=== PATIENT | male | born 1990 | race Caucasian/White ===

== ENCOUNTER 2020-02-01 23:15 | Emergency (ER) | payer OTHER ==
--- NOTE | 2020-02-01 23:21 | ED Physician Documentation ---
History of Present Illness - Stated complaint Stated Complaint: MALE /COLD/BACK SPASMS - History obtained from History obtained from: Patient (Patient is an otherwise healthy 29-year-old male reports several days of worsening fevers, chills, myalgias now reports he has been noticing some hematuria and is having chills and bilateral lower back pain he reports he is up-to-date on all of his immunizations he denies any recent travel outside the country and denies any recent antibiotic use.) Review of Systems Constitutional: reports: Fever, Chills, Myalgias Eyes: reports: Reviewed and negative Ears: reports: Reviewed and negative Nose: reports: Reviewed and negative Throat: reports: Reviewed and negative Cardiac: reports: Reviewed and negative Respiratory: reports: Reviewed and negative GI: reports: Reviewed and negative : reports: Hematuria Skin: reports: Reviewed and negative Musculoskeletal: reports: Back pain Neurologic: reports: Reviewed and negative Psychiatric: reports: Reviewed and negative Endocrine: reports: Reviewed and negative Immunocompromised: reports: Reviewed and negative PD PAST MEDICAL HISTORY - Present Medications Home Medications: Ambulatory Orders Medication Instructions Recorded Confirmed Cephalexin [Keflex] 500 mg PO QID 10 Days #40 capsule 02/02/20 - Allergies Allergies/Adverse Reactions: Allergies Allergy/AdvReac Type Severity Reaction Status Date / Time No Known Drug Allergies Allergy Verified 02/01/20 23:37 PD ED PE NORMAL - Vitals Vital signs reviewed: Yes - General General: Alert and oriented X 3, No acute distress, Well developed/nourished - HEENT HEENT: PERRL, Moist mucous membranes - Neck Neck: Supple, no meningeal sign, No adenopathy - Cardiac Cardiac: RRR, No murmur, Strong equal pulses - Respiratory Respiratory: No respiratory distress, Clear bilaterally - Abdomen Abdomen: Normal bowel sounds, Soft, Non tender, Non distended, No organomegaly - Back Back: No CVA TTP, No spinal TTP - Derm Derm: Normal color, Warm and dry, No rash - Extremities Extremities: No deformity, No tenderness to palpate, Normal ROM s pain, No edema, No calf tenderness / cord - Neuro Neuro: Alert and oriented X 3, volleyball commentator 2-12 intact, No motor deficit, No sensory deficit, Normal speech - Psych Psych: Normal mood, Normal affect Results - Vitals Vitals: Vital Signs - 24 hr 02/01/20 02/02/20 02/02/20 23:25 01:08 01:30 Temperature 37.9 C H 38.4 C H Heart Rate 99 70 Respiratory 22 18 15 Rate Blood Pressure 128/66 116/60 O2 Saturation 100 95 Oxygen O2 Source Room air - EKG (time done) 23:53 Rate: Other (no stemi) - Labs Labs: Laboratory Tests 02/01/20 02/01/20 02/01/20 23:30 23:50 23:50 WBC 5.8 RBC 4.67 L Hgb 14.4 Hct 42.0 MCV 89.9 MCH 30.8 MCHC 34.3 RDW 12.9 Plt Count 285 MPV 9.0 Neut # (Auto) 4.4 Lymph # (Auto) 1.1 L [place] # (Auto) 0.1 Eos # (Auto) 0.1 Baso # (Auto) 0.1 Absolute Nucleated RBC 0.00 Nucleated RBC % 0.0 PT 13.1 H INR 1.2 APTT 34.7 H Sodium Potassium Chloride Carbon Dioxide Anion Gap BUN Creatinine Estimated GFR (MDRD) Glucose Lactic Acid Calcium Total Bilirubin AST ALT Alkaline Phosphatase Total Creatine Kinase Troponin I High Sens Total Protein Albumin Globulin Albumin/Globulin Ratio Lipase Urine Color YELLOW Urine Clarity CLEAR Urine pH 8.0 H Ur Specific [place] 1.015 Urine Protein NEGATIVE Urine Glucose (UA) NEGATIVE Urine Ketones NEGATIVE Urine Occult Blood MODERATE H Urine Nitrite NEGATIVE Urine Bilirubin NEGATIVE Urine Urobilinogen 0.2 (NORMAL) Ur Leukocyte Esterase LARGE H Urine RBC 6-10 H Urine WBC 11-25 H Ur Squamous Epith Cells NONE SEEN Urine Bacteria Few Ur Microscopic Review INDICATED Urine Culture Comments INDICATED Influenza A (Rapid) Influenza B (Rapid) 02/01/20 02/01/20 02/01/20 23:50 23:50 23:55 WBC RBC Hgb Hct MCV MCH MCHC RDW Plt Count MPV Neut # (Auto) Lymph # (Auto) [place] # (Auto) Eos # (Auto) Baso # (Auto) Absolute Nucleated RBC Nucleated RBC % PT INR APTT Sodium 139 Potassium 3.5 Chloride 102 Carbon Dioxide 27 Anion Gap 10.0 BUN 11 Creatinine 1.0 Estimated GFR (MDRD) 90 Glucose 80 Lactic Acid 1.1 Calcium 9.2 Total Bilirubin 0.8 AST 19 ALT 14 Alkaline Phosphatase 45 Total Creatine Kinase 223 Troponin I High Sens 2.8 Total Protein 7.7 Albumin 4.2 Globulin 3.5 Albumin/Globulin Ratio 1.2 Lipase 40 Urine Color Urine Clarity Urine pH Ur Specific [place] Urine Protein Urine Glucose (UA) Urine Ketones Urine Occult Blood Urine Nitrite Urine Bilirubin Urine Urobilinogen Ur Leukocyte Esterase Urine RBC Urine WBC Ur Squamous Epith Cells Urine Bacteria Ur Microscopic Review Urine Culture Comments Influenza A (Rapid) Influenza B (Rapid) 02/02/20 00:40 WBC RBC Hgb Hct MCV MCH MCHC RDW Plt Count MPV Neut # (Auto) Lymph # (Auto) [place] # (Auto) Eos # (Auto) Baso # (Auto) Absolute Nucleated RBC Nucleated RBC % PT INR APTT Sodium Potassium Chloride Carbon Dioxide Anion Gap BUN Creatinine Estimated GFR (MDRD) Glucose Lactic Acid Calcium Total Bilirubin AST ALT Alkaline Phosphatase Total Creatine Kinase Troponin I High Sens Total Protein Albumin Globulin Albumin/Globulin Ratio Lipase Urine Color Urine Clarity Urine pH Ur Specific [place] Urine Protein Urine Glucose (UA) Urine Ketones Urine Occult Blood Urine Nitrite Urine Bilirubin Urine Urobilinogen Ur Leukocyte Esterase Urine RBC Urine WBC Ur Squamous Epith Cells Urine Bacteria Ur Microscopic Review Urine Culture Comments Influenza A (Rapid) Negative Influenza B (Rapid) Negative PD MEDICAL DECISION MAKING - ED course Complexity details: reviewed results, re-evaluated patient, considered differential (uti, pyelo, viral syndrome, flu, covid, kidney stones), d/w patient, d/w family Departure - Departure Disposition: Home, Self Care Clinical Impression: UTI (urinary tract infection) Qualifiers: Urinary tract infection type: site unspecified Hematuria presence: with hematuria Qualified Code(s): N39.0 - Urinary tract infection, site not specified; R31.9 - Hematuria, unspecified Condition: Stable Instructions: ED UTI Cystitis Male Follow-Up: YOUR, DOCTOR [Other] - 02/02/20 [facility] [Provider Group] - 02/02/20 Prescriptions: Cephalexin [Keflex] 500 mg PO QID 10 Days #40 capsule Comments: Take antibiotics as directed. Take either Tylenol or ibuprofen as needed for fever. Hydrate well.Call your primary care provider today for follow-up.
[2020-02-01] MEDS ORDERED: SODIUM CHLORIDE 0.9% 1,000 ML IV STA (23:49)
[2020-02-01] MEDS ORDERED: cefTRIAXone 1 GM in SODIUM CHLORIDE 0.9% MINIBAG 100 ML IV STA (23:49)
[2020-02-01] MEDS ORDERED: IBUPROFEN 800 MG TABLET PO STA (23:49)
[2020-02-01 23:50] LABS: BILIRUBIN,URINE NEGATIVE (NEGATIVE); GLUCOSE, URINE (UA) NEGATIVE (NEGATIVE); KETONES,URINE (UA) NEGATIVE (NEGATIVE); LEUKOCYTE ESTERASE, URINE LARGE (NEGATIVE); NITRITE,URINE NEGATIVE (NEGATIVE); OCCULT BLOOD,URINE MODERATE (NEGATIVE); PROTEIN,URINE NEGATIVE (NEGATIVE); UROBILINOGEN,URINE 0.2 (NORMAL) E.U./dL (NORMAL)
[2020-02-01] MEDS ORDERED: ACETAMINOPHEN 1,000 MG/100 ML 100 ML IV ONE (23:50)
[2020-02-01] MEDS ORDERED: ONDANSETRON 4 MG/2 ML VIAL IVP STA (23:50)
[2020-02-01 23:51] LABS: CLARITY,URINE CLEAR (CLEAR)
[2020-02-01 23:59] LABS: BACTERIA,URINE Few /HPF (None Seen); SQUAMOUS EPITHELIAL CELL,UR NONE SEEN (<= Few)
[2020-02-01] MEDS: MORPHINE 2 MG/ML CARPUJECT IVP STA (23:59)
[2020-02-02] MEDS: MORPHINE 2 MG/ML CARPUJECT IVP STA (00:02)
[2020-02-02 00:14] LABS: BASOPHILS # (AUTO) 0.1 10^3/uL (0.0-0.1); EOSINOPHILS # (AUTO) 0.1 10^3/uL (0.0-0.7); EOSINOPHILS % (AUTO) 2.4 %; HGB - HEMOGLOBIN 14.4 g/dL (14.0-18.0); LYMPHOCYTES # (AUTO) 1.1 10^3/uL (1.5-3.5); LYMPHOCYTES % (AUTO) 18.3 %; MEAN CORPUSCULAR HEMOGLOBIN 30.8 pg (27.0-31.0); MEAN CORPUSCULAR HGB CONC 34.3 g/dL (32.0-36.0); MEAN CORPUSCULAR VOLUME 89.9 fL (80.0-94.0); MONOCYTES # (AUTO) 0.1 10^3/uL (0.0-1.0); MONOCYTES % (AUTO) 0.9 %; NEUTROPHILS # (AUTO) 4.4 10^3/uL (1.5-6.6); NEUTROPHILS % (AUTO) 77.2 %; PLT - PLATELET COUNT 285 10^3/uL (130-450); RED BLOOD COUNT 4.67 10^6/uL (4.70-6.10); RED CELL DISTRIBUTION WIDTH 12.9 % (12.0-15.0); WHITE BLOOD COUNT 5.8 x10^3/uL (4.8-10.8)
[2020-02-02] MEDS ORDERED: MORPHINE 2 MG/ML CARPUJECT ONE (00:14)
[2020-02-02 00:17] LABS: INR 1.2 (0.8-1.2); PT - PROTHROMBIN TIME 13.1 secs (9.9-12.6)
[2020-02-02 00:24] LABS: PARTIAL THROMBOPLASTIN TIME 34.7 secs (24.9-33.3)
[2020-02-02 00:25] LABS: ALBUMIN 4.2 g/dL (3.2-5.5); ALBUMIN/GLOBULIN RATIO 1.2 (1.0-2.2); BILIRUBIN,TOTAL 0.8 mg/dL (0.2-1.0); CALCIUM 9.2 mg/dL (8.5-10.3); TOTAL PROTEIN 7.7 g/dL (6.7-8.2)
[2020-02-02] MEDS ORDERED: MORPHINE 2 MG/ML CARPUJECT IVP STA (00:38)
[2020-02-02 02:11] VITALS: BP 105/55
--- NOTE | 2020-02-02 08:01 | CT Report ---
Reason: flank pain and hematuria Procedure Date: 02/02/2020 Accession Number: [id number] / [id number] Procedure: CT - Abdomen/Pelvis WO CPT Code: Final Report FULL RESULT: PROCEDURE: Abdomen/Pelvis WO INDICATIONS: flank pain and hematuria TECHNIQUE: Non-contrast 3 mm thick sections acquired from the diaphragm to the symphysis. 3 mm thick coronal and sagittal reformats were performed. COMPARISON: None FINDINGS: Image quality: Excellent Lung bases: Lung bases are clear. Heart size is normal. Genitourinary system: Both kidneys are normal in size. No kidney stones. No hydronephrosis or perinephric fat stranding. Both ureters are non-distended through their expected courses. Bladder wall is normal in thickness; no bladder stones. Abdomen: Liver and spleen are normal in size. Gall bladder wall is normal. Pancreas is normal in size. No adrenal nodules. Unopacified bowel loops demonstrate normal caliber and wall thickness. Large amount of fecal debris in the cecum and ascending colon No retroperitoneal or mesenteric adenopathy. Aorta and inferior vena cava are normal in size. No free fluid or air. Pelvis: No pathologic free pelvic fluid. No inguinal hernias or adenopathy. Bones: No suspicious bony abnormalities. No vertebral body compression fractures. IMPRESSION: 1. No evidence of renal stone, ureteral stone, or hydronephrosis. 2. Large amount of right-sided fecal debris. 3. No evidence acute abdominal process. A preliminary report with the above findings was provided at the time of the study by [facility]. Reviewed by: Yogesh Craig MD on 02/02/2020 8:00 AM PDT Approved by: Yogesh Craig MD on 02/02/2020 8:00 AM PDT Station ID: [id number]
--- NOTE | 2020-02-02 08:18 | XRAY Report ---
Reason: fever Procedure Date: 02/02/2020 Accession Number: [id number] / [id number] Procedure: XR - Chest 1 View X-Ray CPT Code: 68051 Final Report FULL RESULT: PROCEDURE: Chest 1 View X-Ray INDICATIONS: fever TECHNIQUE: One view of the chest was acquired. COMPARISON: None FINDINGS: Surgical changes and devices: None. Lungs and pleura: No pleural effusions or pneumothorax. Lungs are clear. Mediastinum: Mediastinal contours appear normal. Heart size is normal. Bones and chest wall: No suspicious bony lesions. Overlying soft tissues appear unremarkable. IMPRESSION: No evidence acute pulmonary process. Reviewed by: Yogesh Craig MD on 02/02/2020 8:16 AM PDT Approved by: Yogesh Craig MD on 02/02/2020 8:16 AM PDT Station ID: [id number]
== END 2020-02-02 02:10 | disposition home or self-care (01) ==
LOC: ED 23:15
DX: N39.0 Urinary tract infection, site not specified (principal); R31.9 Hematuria, unspecified; I51.7 Cardiomegaly; Z11.59 Encounter for screening for other viral diseases
CPT/HCPCS: 36415; 71045; 74176; 80053; 81001; 81003; 81599; 82550; 83605; 83690; 84484; 85025; 85610; 85730; 87040; 87077; 87086; 87181; 87275; 87276; 93005; 96365; 96375; 99283

== ENCOUNTER 2020-02-02 13:18 | Inpatient (IN) | payer OTHER ==
--- NOTE | 2020-02-02 13:44 | ED Physician Documentation ---
History of Present Illness - Stated complaint Stated Complaint: POSITIVE BLOOD CULTURE - History obtained from History obtained from: Patient, Other (chart) - History of Present Illness Timing: Yesterday Review of Systems Constitutional: reports: Chills, Myalgias, Fatigue Cardiac: denies: Chest pain / pressure, Palpitations Respiratory: denies: Dyspnea, Cough GI: denies: Abdominal Pain : reports: Dysuria, Hematuria Skin: denies: Rash, Lesions Musculoskeletal: denies: Back pain Neurologic: denies: Generalized weakness, Focal weakness, Syncope, Seizure, Confused, Altered mental status Endocrine: denies: Polydypsia, Polyuria Immunocompromised: denies: Immunocompromised, HIV/AIDS PD PAST MEDICAL HISTORY - Past Medical History Cardiovascular: None Respiratory: None Neuro: None Endocrine/Autoimmune: None GI: None : None HEENT: None Psych: None Musculoskeletal: None Derm: None - Past Surgical History Past Surgical History: Yes HEENT: Tonsil/Adenoidectomy - Present Medications Home Medications: Ambulatory Orders Medication Instructions Recorded Confirmed Cephalexin [Keflex] 500 mg PO QID 10 Days #40 capsule 02/02/20 - Allergies Allergies/Adverse Reactions: Allergies Allergy/AdvReac Type Severity Reaction Status Date / Time No Known Drug Allergies Allergy Verified 02/02/20 13:32 - Social History Does the pt smoke?: Yes Smoking Status: Current every day smoker Does the pt drink ETOH?: Yes Does the pt have substance abuse?: No - Immunizations Immunizations are current?: Yes PD ED PE NORMAL - General General: Alert and oriented X 3, No acute distress - HEENT HEENT: PERRL, EOMI - Neck Neck: Supple, no meningeal sign - Cardiac Cardiac: RRR, No murmur, Strong equal pulses, Other (mild tachycardia 110) - Respiratory Respiratory: No respiratory distress, Clear bilaterally - Abdomen Abdomen: Normal bowel sounds, Soft - Back Back: No CVA TTP, No spinal TTP - Derm Derm: Normal color, Warm and dry, No rash - Extremities Extremities: No deformity, No tenderness to palpate, Normal ROM s pain - Neuro Neuro: Alert and oriented X 3, director of investigations 2-12 intact, No motor deficit, Normal speech Results - Vitals Vitals: Vital Signs - 24 hr 02/02/20 02/02/20 13:21 13:32 Temperature 37.6 C H 37.6 C H Heart Rate 110 H 110 H Respiratory 18 18 Rate Blood Pressure 116/63 116/63 O2 Saturation 97 Oxygen O2 Source Room air - Labs Labs: Laboratory Tests 02/02/20 02/02/20 02/02/20 13:45 13:45 13:45 WBC 12.4 H RBC 4.40 L Hgb 13.6 L Hct 39.3 L MCV 89.3 MCH 30.9 MCHC 34.6 RDW 12.9 Plt Count 244 MPV 8.7 Neut # (Auto) 10.7 H Lymph # (Auto) 0.6 L [place] # (Auto) 0.8 Eos # (Auto) 0.1 Baso # (Auto) 0.1 Absolute Nucleated RBC 0.00 Nucleated RBC % 0.0 Sodium 135 Potassium 3.6 Chloride 103 Carbon Dioxide 23 Anion Gap 9.0 BUN 15 Creatinine 1.0 Estimated GFR (MDRD) 90 Glucose 115 H Lactic Acid 1.0 Calcium 8.7 Total Bilirubin 1.1 H AST 19 ALT 12 Alkaline Phosphatase 38 L Total Protein 7.0 Albumin 3.6 Globulin 3.4 Albumin/Globulin Ratio 1.1 PD MEDICAL DECISION MAKING - ED course Complexity details: reviewed results, re-evaluated patient, considered differential, d/w patient ED course: 29year old male returns to the ED after blood cx obtained yesterday evening resulted + for gram negative bacteria. A urine cx has resulted positive for e- coli - pt will be admitted to [facility] hospitalist staff. I have spoken with Dr. alvarez who has agreed to see and admit patient - Repeat blood cx pending. Pt's lactate is normal. He has no fever here and no tachycardia. meets Sepsis criteria without shock. Inital lactate today is not elevated. Will be repeat by hospitalist staff. I have ordered 1 liter of IVF Departure - Departure Disposition: [facility] DC/Xfer Clinical Impression: Bacteremia due to Gram-negative bacteria
[2020-02-02 13:54] LABS: BASOPHILS # (AUTO) 0.1 10^3/uL (0.0-0.1); BASOPHILS % (AUTO) 0.7 %; EOSINOPHILS # (AUTO) 0.1 10^3/uL (0.0-0.7); EOSINOPHILS % (AUTO) 0.7 %; HGB - HEMOGLOBIN 13.6 g/dL (14.0-18.0); LYMPHOCYTES # (AUTO) 0.6 10^3/uL (1.5-3.5); MEAN CORPUSCULAR HEMOGLOBIN 30.9 pg (27.0-31.0); MEAN CORPUSCULAR HGB CONC 34.6 g/dL (32.0-36.0); MEAN CORPUSCULAR VOLUME 89.3 fL (80.0-94.0); MEAN PLATELET VOLUME 8.7 fL (7.4-11.4); MONOCYTES # (AUTO) 0.8 10^3/uL (0.0-1.0); MONOCYTES % (AUTO) 6.8 %; NEUTROPHILS # (AUTO) 10.7 10^3/uL (1.5-6.6); NEUTROPHILS % (AUTO) 86.3 %; PLT - PLATELET COUNT 244 10^3/uL (130-450); RED CELL DISTRIBUTION WIDTH 12.9 % (12.0-15.0); WHITE BLOOD COUNT 12.4 x10^3/uL (4.8-10.8)
[2020-02-02 14:09] LABS: ALBUMIN 3.6 g/dL (3.2-5.5); ALBUMIN/GLOBULIN RATIO 1.1 (1.0-2.2); BILIRUBIN,TOTAL 1.1 mg/dL (0.2-1.0); CALCIUM 8.7 mg/dL (8.5-10.3)
[2020-02-02] MEDS ORDERED: cefTRIAXone 2 GM in SODIUM CHLORIDE 0.9% MINIBAG 100 ML IV STA (14:30)
[2020-02-02] MEDS ORDERED: SODIUM CHLORIDE 0.9% 1,000 ML IV STA (14:47)
[2020-02-02] MEDS ORDERED: ONDANSETRON 4 MG/2 ML VIAL IVP PRN (15:03)
[2020-02-02] MEDS ORDERED: SODIUM CHLORIDE FLUSH 0.9% 10 ML SYRINGE IVP PRN (15:03)
--- NOTE | 2020-02-02 15:16 | HISTORY & PHYSICAL EXAMINATION ---
Chief Complaint - Chief Complaint Chief Complaint: fever, bacteremia History of Present Illness - Admitted From Admitted From:: ER - History Obtained From History obtained from: pt - History of Present Illness HPI Comment/Other: This is an otherwise healthy 29-year-old male who present ER complain of fever, and positive bacteremia. Patient came to the ER on yesterday. He was reported to have UTI. patient was prescribed antibiotics and discharged to go home. patient had blood culture On yesterday. It was reported he had bacterial uremia with negative bacilli in his the 2 tubal blood culture. patient was recalled and advised patient come back to the hospital for continuing medical management. He reported several days of worsening fevers, chills, myalgias. He reported he has been noticing some hematuria, and had bilateral lower back pain. he denies any recent travel outside the country. Patient had covid 19 test on yesterday, the test result is still not to come back yet. In routine lab test show patient had elevated WBC, lactic acid is normal, the ER patient had temperature 37.6, slightly tachycardia at heart rate 110. Patient denies chest pain, shortness of breathing, abdominal pain, nausea or vomiting or diarrhea. Patient is admitted for further medical management. History - Past Medical History Cardiovascular: reports: None Respiratory: reports: None Neuro: reports: None Endocrine/Autoimmune: reports: None GI: reports: None : reports: None HEENT: reports: None Psych: reports: None Musculoskeletal: reports: None Derm: reports: None MRSA Hx?: No - Past Surgical History HEENT: reports: Tonsil/Adenoidectomy - Family & Social History Family History: Mother: Alive and Well, Father: Alive and Well Family History Comment/Other: pt report her parents are still living at [place]. his father has prostate cancer in the control, and her mother had breast cancer in the control as well. Social History Notes: pt report he smoked 6-7 cigarette per day. he denies alcohol and drug abuse. 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 he had two children. Meds/Allgy - Home Medications Home Medications: Ambulatory Orders Medication Instructions Recorded Confirmed No Known Home Medications 02/02/20 02/02/20 - Allergies Allergies/Adverse Reactions: Allergies Allergy/AdvReac Type Severity Reaction Status Date / Time No Known Drug Allergies Allergy Verified 02/02/20 13:32 Review of Systems - Constitutional Constitutional: reports: Fatigue, Fever. denies: Malaise, Weakness, Poor appetite, Diaphoresis, Night sweats - Eyes Eyes: denies: Pain, Blurred vision, Spots in vision, Field loss, Vision loss, Dipolpia - Ears, Nose & Throat Ears, Nose & Throat: denies: Ear pain, Hearing loss, Vertigo, Nasal discharge, Nosebleeds, Nasal congestion, Mouth lesions, Bleeding gums - Cardiovascular Cariovascular: denies: Irregular heart rate, Palpitations, Chest pain, Edema, Lightheadedness, Syncope, Exertional dyspnea, Decr. exercise tolerance - Respiratory Respiratory: denies: Cough, Sputum production, Wheezing, Snoring, Hemoptysis, Orthopnea, SOB at rest, SOB with exertion - Gastrointestinal Gastrointestinal: denies: Abdominal pain, Abdominal distention, Constipation, Diarrhea, Change in bowel habits, Rectal bleeding, Black stools, Bloody stools, Nausea, Vomiting, Bile emesis, Coffee grounds emesis, Reflux/heartburn - Genitourinary Genitourinary: denies: Dysuria, Frequency, Urgency, Hematuria, Incontinence, Flank pain, Nocturia - Musculoskeletal Musculoskeletal: reports: Back pain. denies: Muscle pain, Muscle aches, Stiffness, Limited range of motion, Muscle weakness, Gout, Joint pain - Integumentary Integumentary: denies: Rash, Pruritis, Lesions, Dryness, Lumps, Acne, Pigment changes, Nail changes - Neurological Neurological: denies: General weakness, Focal weakness, Headache, Dizziness, Numbness, Memory problems, Pre-existing deficit, Abnormal gait, Seizures, I ncoordination, Slurred speech - Psychiatric Psychiatric: denies: Depression, Anxiety, Suicidal, Delusions, Hallucinations, Homicidal - Endocrine Endocrine: denies: Polyuria, Polydypsia, Polyphagia - Hematologic/Lymphatic Hematologic/Lymphatic: denies: Anemia, Bruising, Petechiae, Blood clots, Lymphadenopathy, Bleeding tendencies Exam - Vital Signs Vital Signs: Vital Signs x48h Temp Pulse Resp BP Pulse Ox 02/02/20 13:32 37.6 C H 110 H 18 116/63 02/02/20 13:21 37.6 C H 110 H 18 97 - Physical Exam General Appearance: positive: No acute distress, Alert. negative: Lethargic Eyes Bilateral: positive: Normal inspection, PERRL, No lid inflammation ENT: positive: ENT inspection nml, No signs of dehydration. negative: Purulent nasal drainage Neck: positive: Nml inspection, Thyroid nml, Trachea midline. negative: Thyromegaly, Stiff neck, Tracheal deviation Respiratory: positive: Chest non-tender, No respiratory distress, Breath sounds nml. negative: Wheezes, Rales, Rhonchi Cardiovascular: positive: Regular rate & rhythm, No murmur, No gallop, Tachycardia. negative: Irregularly irregular, Bradycardia, Systolic murmur, Diastolic murmur Peripheral Pulses: positive: 2+ Abdomen: positive: Non-tender, No organomegaly, Nml bowel sounds, No distention. negative: Tenderness, Guarding, Rebound Back: positive: Nml inspection. negative: CVA tenderness (R), CVA tenderness (L) Skin: positive: Color nml, No rash, Warm, Dry. negative: Cyanosis, Diaphoresis, Pallor Extremities: positive: Non-tender, Full ROM, Nml appearance. negative: Calf tenderness, Giselle's sign/cords Neurologic/Psychiatric: positive: Oriented x3, Motor nml, Sensation nml. negative: Weakness, Sensory loss, Facial droop, Slurred/abnml speech, Depressed mood/affect Sepsis Event Note (H) - Evaluation Current Stage of Sepsis: Sepsis Possible source of Sepsis: positive: Genitourinary - Sepsis Criteria Sepsis Criteria: Recorded Temperature greater than 38.3C or Less than 36C, Recorded Heart Rate greater than 90 bpm, WBC count greater than 10% bands, WBC count greater than 12,000 or less than 4000 Conclusion/Plan - Problem List (1) Sepsis Conclusion/Plan: Patient had a fever and chill, patient had elevated WBC, blood culture show 2 tube with bacteremia, UA show positive for the UTI, patient had sepsis and likely from urinary tract infection. patient was given intravenous antibiotics Rocephin in the ER, will continue to give patient Rocephin, intravenous IV fluids, monitor with vital signs and lab test, Follow-up second blood culture which was done in the ER, patient had a COVID-19 test on yesterday, results still pending. (2) Bacteremia due to Gram-negative bacteria Conclusion/Plan: Patient had bacteremia in the blood culture on 2 tubal which show patient had gram-negative bacilli, is likely from the urinary tract infection E. coli, will continue treated antibiotics Rocephin, intravenous IV flu, continue closely monitor patient with vital signs and laboratory test (3) Fever Conclusion/Plan: Patient had a fever on yesterday 38.3, today continue had elevated temperature at 37.6, patient had a COVID-19 testing in the ER done on the yesterday, results is still pending, will treat with antibiotics Rocephin, as needed with Tylenol for fever. (4) UTI (urinary tract infection) Conclusion/Plan: Urinalysis reveals patient has a UTI, we will continue treated with Rocephin, and sensitivity study is still pending, will follow up - Lab Results Fish Bones: 02/02/20 13:45 02/02/20 13:45 Core Measures - Anticipated LOS I expect patient to be DC'd or transferred within 96 hours.: Yes - DVT/VTE - Prophylaxis VTE/DVT Device ordered at admit?: Yes VTE/DVT Prophylaxis med ordered at admit?: Yes
[2020-02-02] MEDS ORDERED: HYDROmorphone 1 MG/ML CARPUJECT IVP STA (15:19)
--- NOTE | 2020-02-02 16:05 | PHARMACY PROGRESS NOTE ---
- Best Possible Medication History Admit Date and Time: 02/02/20 1503 Processed by: Pharmacy Medication History completed: Yes Patient Interview: Completed As the person ultimately responsible for medication therapy, providers are able to order a medication from an existing home medication list in [facility] via the "Reconcile Routine" prior to Confirmation of that medication by bioinformatics support specialist. Such practice is discouraged except when the physician, in their clinical valdemar gment, deems that a medical need exists for a medication without regard to previous use.
[2020-02-02] MEDS ORDERED: MORPHINE 2 MG/ML CARPUJECT IVP PRN (16:51)
[2020-02-02] MEDS ORDERED: SODIUM CHLORIDE 0.9% 500 ML IV ONE ×2 (16:52→18:30)
[2020-02-02] MEDS: NICOTINE 14 MG PATCH TOP SCH (16:59)
[2020-02-02] MEDS: SACCHAROMYCES BOULARDII 250 MG CAPSULE PO SCH (16:59)
[2020-02-02] MEDS: ACETAMINOPHEN 325 MG TABLET PO PRN (16:59)
[2020-02-02] MEDS: SODIUM CHLORIDE 0.9% 1,000 ML IV SCH (16:59)
[2020-02-02] MEDS: SODIUM CHLORIDE FLUSH 0.9% 10 ML SYRINGE IVP SCH (17:00)
[2020-02-02 20:16] LABS: BILIRUBIN,URINE NEGATIVE (NEGATIVE); GLUCOSE, URINE (UA) NEGATIVE (NEGATIVE); KETONES,URINE (UA) 15 mg/dL (NEGATIVE); LEUKOCYTE ESTERASE, URINE NEGATIVE (NEGATIVE); NITRITE,URINE NEGATIVE (NEGATIVE); OCCULT BLOOD,URINE NEGATIVE (NEGATIVE); PROTEIN,URINE NEGATIVE (NEGATIVE); UROBILINOGEN,URINE 0.2 (NORMAL) E.U./dL (NORMAL)
[2020-02-02 20:18] LABS: CLARITY,URINE CLEAR (CLEAR)
[2020-02-02 20:35] LABS: BACTERIA,URINE None Seen /HPF (None Seen); RBC,URINE 0-5 /HPF (0-5); SQUAMOUS EPITHELIAL CELL,UR NONE SEEN (<= Few)
[2020-02-02] MEDS: oxyCODONE 5 MG TABLET PO PRN (21:27)
--- NOTE | 2020-02-02 23:17 | PROVIDER PROGRESS NOTE ---
[employer] Shift Superintendent Note - [employer] Shift Superintendent Note [employer] Shift Superintendent Note: On further inquiry as to patient's presentation he denied any history of kidney stones. He denied any recent trauma. He is sexually active with one other female aside from his . He is currently going through a divorce and has not been sexually active with his for the past 6 months. He affirmed to unprotected vaginal and anal intercourse with this individual. He denied any urethral discharge. Except recently with blood in his urine he also denied any pain upon urination. He denies any previous history of UTIs. He denied any history of STDs. He has been tested for gonorrhea, chlamydia, trichomonas and syphilis.
[2020-02-03] MEDS: ACETAMINOPHEN 325 MG TABLET PO PRN ×3 (00:32→23:55)
[2020-02-03] MEDS: SODIUM CHLORIDE FLUSH 0.9% 10 ML SYRINGE IVP SCH ×4 (00:34→23:53)
[2020-02-03] MEDS: oxyCODONE 5 MG TABLET PO PRN ×2 (02:40→09:05)
[2020-02-03] MEDS: SODIUM CHLORIDE 0.9% 1,000 ML IV SCH ×3 (02:40→23:53)
[2020-02-03 05:36] LABS: BASOPHILS # (AUTO) 0.1 10^3/uL (0.0-0.1); BASOPHILS % (AUTO) 0.8 %; EOSINOPHILS # (AUTO) 0.1 10^3/uL (0.0-0.7); EOSINOPHILS % (AUTO) 1.3 %; HGB - HEMOGLOBIN 12.6 g/dL (14.0-18.0); LYMPHOCYTES # (AUTO) 1.5 10^3/uL (1.5-3.5); LYMPHOCYTES % (AUTO) 19.6 %; MEAN CORPUSCULAR HEMOGLOBIN 30.2 pg (27.0-31.0); MEAN CORPUSCULAR HGB CONC 33.5 g/dL (32.0-36.0); MEAN CORPUSCULAR VOLUME 90.2 fL (80.0-94.0); MEAN PLATELET VOLUME 8.9 fL (7.4-11.4); MONOCYTES # (AUTO) 0.9 10^3/uL (0.0-1.0); MONOCYTES % (AUTO) 12.1 %; NEUTROPHILS % (AUTO) 65.8 %; PLT - PLATELET COUNT 200 10^3/uL (130-450); RED BLOOD COUNT 4.17 10^6/uL (4.70-6.10); RED CELL DISTRIBUTION WIDTH 12.9 % (12.0-15.0); WHITE BLOOD COUNT 7.7 x10^3/uL (4.8-10.8)
[2020-02-03 05:44] LABS: CALCIUM 7.9 mg/dL (8.5-10.3)
[2020-02-03] MEDS: PANTOPRAZOLE 40 MG TABLET PO SCH (06:29)
[2020-02-03] MEDS ORDERED: POTASSIUM CHLORIDE 20 MEQ TABLET PO ONE (08:00)
[2020-02-03] MEDS: SACCHAROMYCES BOULARDII 250 MG CAPSULE PO SCH ×2 (09:03→17:17)
[2020-02-03] MEDS: cefTRIAXone 2 GM in SODIUM CHLORIDE 0.9% MINIBAG 100 ML IV SCH (09:04)
[2020-02-03] MEDS: NICOTINE 14 MG PATCH TOP SCH (09:14)
[2020-02-03] MEDS: ENOXAPARIN 40 MG/0.4 ML SYRINGE SUBQ SCH (09:15)
--- NOTE | 2020-02-03 10:03 | PROVIDER PROGRESS NOTE ---
Subjective - Prog Note Date Prog Note Date: 02/03/20 - Subjective Pt reports feeling: Improved Subjective: pt report he felt better. he report he had a spot fever on last night but no fever at this morning. he denies cough, shortness of breath, chest pain. he did report to night provider he had non-protected intercourse on vaginal and anus with a female out of his marriage. he reported he has been on divorce process with his . pt declined to talk the above when he was in the admission. Current Medications - Current Medications Current Medications: Active Medications Acetaminophen (Tylenol) 650 mg PO Q4HR PRN PRN Reason: Pain 1 to 4 Last Admin: 02/03/20 00:32 Dose: 650 mg Enoxaparin Sodium (Lovenox) 40 mg SUBQ DAILY [facility] Last Admin: 02/03/20 09:15 Dose: 40 mg Sodium Chloride (Normal Saline 0.9%) 1,000 mls @ 100 mls/hr IV .Q10H [facility] Last Admin: 02/03/20 02:40 Dose: 100 mls/hr Ceftriaxone Sodium 2 gm/ (Sodium Chloride) 100 mls @ 200 mls/hr IV DAILY [facility] Last Infusion: 02/03/20 09:43 Dose: Infused Morphine Sulfate (Morphine (Carpuject)) 2 mg IVP Q2HR PRN PRN Reason: PAIN >5-10 Nicotine (Nicoderm) 1 patch TOP DAILY [facility] Last Admin: 02/03/20 09:14 Dose: 1 patch Ondansetron HCl (Zofran Inj) 4 mg IVP Q6HR PRN PRN Reason: Nausea / Vomiting Oxycodone HCl (Roxicodone) 5 mg PO Q4HR PRN PRN Reason: PAIN 1-5 Last Admin: 02/03/20 09:05 Dose: 5 mg Pantoprazole Sodium (Protonix) 40 mg PO QDAC [facility] Last Admin: 02/03/20 06:29 Dose: 40 mg Saccharomyces Boulardii (Florastor) 250 mg PO BIDWM [facility] Last Admin: 02/03/20 09:03 Dose: 250 mg Sodium Chloride (Normal Saline Flush 0.9%) 10 ml IVP PRN PRN PRN Reason: NEEDED PER PROVIDER ORDERS Sodium Chloride (Normal Saline Flush 0.9%) 10 ml IVP 0100,0900,1700 [facility] Last Admin: 02/03/20 09:10 Dose: 10 ml No Known Home Medications 02/02/20 Objective - Vital Signs/Intake & Output Vital Signs: Vital Signs x48h Temp Pulse Resp BP Pulse Ox 02/03/20 07:46 37.1 C 63 18 110/60 97 02/03/20 02:40 37.3 C 63 16 107/55 L 97 Intake & Output: Intake & Output 01/31/20 02/01/20 02/02/20 02/03/20 23:59 23:59 23:59 23:59 Intake Total 2486 1068.333 Output Total 1350 750 Balance 1136 318.333 - Objective General Appearance: positive: No acute distress, Alert. negative: Lethargic Eyes Bilateral: positive: Normal inspection, PERRL, No lid inflammation ENT: positive: ENT inspection nml, Pharynx nml, No signs of dehydration. negative: Purulent nasal drainage, Pharyngeal erythema, Oral lesions Neck: positive: Nml inspection, Thyroid nml, Trachea midline. negative: Thyromegaly, Lymphadenopathy (R), Lymphadenopathy (L), Stiff neck, Tracheal deviation Respiratory: positive: Chest non-tender, No respiratory distress, Breath sounds nml. negative: Wheezes, Rales, Rhonchi Cardiovascular: positive: Regular rate & rhythm, No murmur, No gallop. negative: Irregularly irregular, Tachycardia, Bradycardia, JVD present, Systolic murmur, Diastolic murmur Peripheral Pulses: 2+ Radial (R), 2+ Radial (L), 2+ Dorsalis pedis (R), 2+ Dorsalis pedis (L) Abdomen: positive: Non-tender, No organomegaly, Nml bowel sounds, No distention. negative: Tenderness, Guarding, Rebound Back: positive: Nml inspection. negative: CVA tenderness (R), CVA tenderness (L) Skin: positive: Color nml, No rash, Warm, Dry. negative: Cyanosis, Diaphoresis, Pallor Extremities: positive: Non-tender, Full ROM, Nml appearance. negative: Calf tenderness, Giselle's sign/cords Neurologic/Psychiatric: positive: Oriented x3, Motor nml, Sensation nml, Mood/af fect nml. negative: Weakness, Sensory loss, Facial droop, Slurred/abnml speech, Depressed mood/affect - Lab Results Fish Bones: 02/03/20 05:26 02/03/20 05:26 Other Labs: Lab Results x24hrs 02/03/20 02/03/20 02/02/20 Range/Units 05:26 05:26 19:30 WBC 7.7 (4.8-10.8) x10^3/uL RBC 4.17 L (4.70-6.10) 10^6/uL Hgb 12.6 L (14.0-18.0) g/dL Hct 37.6 L (42.0-52.0) % MCV 90.2 (80.0-94.0) fL MCH 30.2 (27.0-31.0) pg MCHC 33.5 (32.0-36.0) g/dL RDW 12.9 (12.0-15.0) % Plt Count 200 (130-450) 10^3/uL MPV 8.9 (7.4-11.4) fL Neut # (Auto) 5.0 (1.5-6.6) 10^3/uL Lymph # (Auto) 1.5 (1.5-3.5) 10^3/uL [place] # (Auto) 0.9 (0.0-1.0) 10^3/uL Eos # (Auto) 0.1 (0.0-0.7) 10^3/uL Baso # (Auto) 0.1 (0.0-0.1) 10^3/uL Absolute Nucleated RBC 0.00 x10^3/uL Nucleated RBC % 0.0 /100WBC Sodium 135 (135-145) mmol/L Potassium 3.4 L (3.5-5.0) mmol/L Chloride 106 (101-111) mmol/L Carbon Dioxide 23 (21-32) mmol/L Anion Gap 6.0 (6-13) BUN 12 (6-20) mg/dL Creatinine 1.0 (0.6-1.2) mg/dL Estimated GFR (MDRD) 90 (>89) Glucose 136 H (70-100) mg/dL Lactic Acid (0.5-2.2) mmol/L Calcium 7.9 L (8.5-10.3) mg/dL Total Bilirubin (0.2-1.0) mg/dL AST (10-42) IU/L ALT (10-60) IU/L Alkaline Phosphatase (42-121) IU/L Total Protein (6.7-8.2) g/dL Albumin (3.2-5.5) g/dL Globulin (2.1-4.2) g/dL Albumin/Globulin Ratio (1.0-2.2) Urine Color YELLOW Urine Clarity CLEAR (CLEAR) Urine pH 8.0 H (5.0-7.5) PH Ur Specific [place] 1.010 (1.002-1.030) Urine Protein NEGATIVE (NEGATIVE) mg/dL Urine Glucose (UA) NEGATIVE (NEGATIVE) mg/dL Urine Ketones 15 H (NEGATIVE) mg/dL Urine Occult Blood NEGATIVE (NEGATIVE) Urine Nitrite NEGATIVE (NEGATIVE) Urine Bilirubin NEGATIVE (NEGATIVE) Urine Urobilinogen 0.2 (NORMAL) (NORMAL) E.U./dL Ur Leukocyte Esterase NEGATIVE (NEGATIVE) Urine RBC 0-5 (0-5) /HPF Urine WBC 6-10 H (0-3) /HPF Ur Squamous Epith Cells NONE SEEN (<= Few) Urine Bacteria None Seen (None Seen) /HPF Urine Culture Comments INDICATED 02/02/20 02/02/20 02/02/20 Range/Units 17:41 13:45 13:45 WBC (4.8-10.8) x10^3/uL RBC (4.70-6.10) 10^6/uL Hgb (14.0-18.0) g/dL Hct (42.0-52.0) % MCV (80.0-94.0) fL MCH (27.0-31.0) pg MCHC (32.0-36.0) g/dL RDW (12.0-15.0) % Plt Count (130-450) 10^3/uL MPV (7.4-11.4) fL Neut # (Auto) (1.5-6.6) 10^3/uL Lymph # (Auto) (1.5-3.5) 10^3/uL [place] # (Auto) (0.0-1.0) 10^3/uL Eos # (Auto) (0.0-0.7) 10^3/uL Baso # (Auto) (0.0-0.1) 10^3/uL Absolute Nucleated RBC x10^3/uL Nucleated RBC % /100WBC Sodium 135 (135-145) mmol/L Potassium 3.6 (3.5-5.0) mmol/L Chloride 103 (101-111) mmol/L Carbon Dioxide 23 (21-32) mmol/L Anion Gap 9.0 (6-13) BUN 15 (6-20) mg/dL Creatinine 1.0 (0.6-1.2) mg/dL Estimated GFR (MDRD) 90 (>89) Glucose 115 H (70-100) mg/dL Lactic Acid 0.7 1.0 (0.5-2.2) mmol/L Calcium 8.7 (8.5-10.3) mg/dL Total Bilirubin 1.1 H (0.2-1.0) mg/dL AST 19 (10-42) IU/L ALT 12 (10-60) IU/L Alkaline Phosphatase 38 L (42-121) IU/L Total Protein 7.0 (6.7-8.2) g/dL Albumin 3.6 (3.2-5.5) g/dL Globulin 3.4 (2.1-4.2) g/dL Albumin/Globulin Ratio 1.1 (1.0-2.2) Urine Color Urine Clarity (CLEAR) Urine pH (5.0-7.5) PH Ur Specific [place] (1.002-1.030) Urine Protein (NEGATIVE) mg/dL Urine Glucose (UA) (NEGATIVE) mg/dL Urine Ketones (NEGATIVE) mg/dL Urine Occult Blood (NEGATIVE) Urine Nitrite (NEGATIVE) Urine Bilirubin (NEGATIVE) Urine Urobilinogen (NORMAL) E.U./dL Ur Leukocyte Esterase (NEGATIVE) Urine RBC (0-5) /HPF Urine WBC (0-3) /HPF Ur Squamous Epith Cells (<= Few) Urine Bacteria (None Seen) /HPF Urine Culture Comments 02/02/20 Range/Units 13:45 WBC 12.4 H (4.8-10.8) x10^3/uL RBC 4.40 L (4.70-6.10) 10^6/uL Hgb 13.6 L (14.0-18.0) g/dL Hct 39.3 L (42.0-52.0) % MCV 89.3 (80.0-94.0) fL MCH 30.9 (27.0-31.0) pg MCHC 34.6 (32.0-36.0) g/dL RDW 12.9 (12.0-15.0) % Plt Count 244 (130-450) 10^3/uL MPV 8.7 (7.4-11.4) fL Neut # (Auto) 10.7 H (1.5-6.6) 10^3/uL Lymph # (Auto) 0.6 L (1.5-3.5) 10^3/uL [place] # (Auto) 0.8 (0.0-1.0) 10^3/uL Eos # (Auto) 0.1 (0.0-0.7) 10^3/uL Baso # (Auto) 0.1 (0.0-0.1) 10^3/uL Absolute Nucleated RBC 0.00 x10^3/uL Nucleated RBC % 0.0 /100WBC Sodium (135-145) mmol/L Potassium (3.5-5.0) mmol/L Chloride (101-111) mmol/L Carbon Dioxide (21-32) mmol/L Anion Gap (6-13) BUN (6-20) mg/dL Creatinine (0.6-1.2) mg/dL Estimated GFR (MDRD) (>89) Glucose (70-100) mg/dL Lactic Acid (0.5-2.2) mmol/L Calcium (8.5-10.3) mg/dL Total Bilirubin (0.2-1.0) mg/dL AST (10-42) IU/L ALT (10-60) IU/L Alkaline Phosphatase (42-121) IU/L Total Protein (6.7-8.2) g/dL Albumin (3.2-5.5) g/dL Globulin (2.1-4.2) g/dL Albumin/Globulin Ratio (1.0-2.2) Urine Color Urine Clarity (CLEAR) Urine pH (5.0-7.5) PH Ur Specific [place] (1.002-1.030) Urine Protein (NEGATIVE) mg/dL Urine Glucose (UA) (NEGATIVE) mg/dL Urine Ketones (NEGATIVE) mg/dL Urine Occult Blood (NEGATIVE) Urine Nitrite (NEGATIVE) Urine Bilirubin (NEGATIVE) Urine Urobilinogen (NORMAL) E.U./dL Ur Leukocyte Esterase (NEGATIVE) Urine RBC (0-5) /HPF Urine WBC (0-3) /HPF Ur Squamous Epith Cells (<= Few) Urine Bacteria (None Seen) /HPF Urine Culture Comments ABX Reporting Has patient been on IV antibiotics over the past 48 hours?: Yes Sepsis Event Note (H) - Evaluation Current Stage of Sepsis: Sepsis Possible source of Sepsis: positive: Genitourinary - Sepsis Criteria Sepsis Criteria: Recorded Temperature greater than 38.3C or Less than 36C, Recorded Heart Rate greater than 90 bpm, WBC count greater than 10% bands, WBC count greater than 12,000 or less than 4000 Assessment/Plan - Problem List (1) Sepsis Impression: 02/02 Patient's WBC is become normal and BP is stable, but patient still had spotted fever 39.3 on last night, blood culture and urinalysis are still pe nding, we will continue treated with IV of antibiotics, intravenous IV fluids, vital signs and lab monitor. 02/01 Patient had a fever and chill, patient had elevated WBC, blood culture show 2 tube with bacteremia, UA show positive for the UTI, patient had sepsis and likely from urinary tract infection. patient was given intravenous antibiotics Rocephin in the ER, will continue to give patient Rocephin, intravenous IV fluids, monitor with vital signs and lab test, Follow-up second blood culture w hich was done in the ER, patient had a COVID-19 test on yesterday, results still pending. (2) Bacteremia due to Gram-negative bacteria Conclusion/Plan: 02/02 Blood culture is still pending now, will continue treat antibiotics Rocephin, vital signal monitor, if the patient continues have fever today afternoon, then will order another blood culture. Now pt has no fever 02/01 Patient had bacteremia in the blood culture on 2 tubal which show patient had gram-negative bacilli, is likely from the urinary tract infection E. coli, will continue treated antibiotics Rocephin, intravenous IV flu, continue closely monitor patient with vital signs and laboratory test (3) Fever Conclusion/Plan: 02/02 Patient had fever on last night at 39.3 degree, but he has no fever at this morning, use of Tylenol for the fever PRN, continue treating infection with antibiotics, continue intravenous IV fluids 02/01Patient had a fever on yesterday 38.3, today continue had elevated temperature at 37.6, patient had a COVID-19 testing in the ER done on the yesterday, results is still pending, will treat with antibiotics Rocephin, as needed with Tylenol for fever. (4) UTI (urinary tract infection) Conclusion/Plan: Urinalysis reveals patient has a UTI, we will continue treated with Rocephin, and sensitivity study is still pending, will follow up (5)high risk heterosexual behavior According to patient's report, patient had high risk heterosexual before this happened, we will continue treatment with antibiotics, we will test STD plus HIV, advised patient have protection sexual behavior
[2020-02-03] MEDS ORDERED: AZITHROMYCIN 250 MG TABLET PO STA (22:38)
[2020-02-04 05:23] LABS: BASOPHILS # (AUTO) 0.1 10^3/uL (0.0-0.1); BASOPHILS % (AUTO) 1.2 %; EOSINOPHILS # (AUTO) 0.3 10^3/uL (0.0-0.7); EOSINOPHILS % (AUTO) 5.2 %; HGB - HEMOGLOBIN 12.4 g/dL (14.0-18.0); LYMPHOCYTES % (AUTO) 34.5 %; MEAN CORPUSCULAR HGB CONC 34.1 g/dL (32.0-36.0); MEAN PLATELET VOLUME 9.5 fL (7.4-11.4); MONOCYTES # (AUTO) 1.2 10^3/uL (0.0-1.0); MONOCYTES % (AUTO) 19.5 %; NEUTROPHILS # (AUTO) 2.3 10^3/uL (1.5-6.6); NEUTROPHILS % (AUTO) 39.3 %; PLT - PLATELET COUNT 196 10^3/uL (130-450); WHITE BLOOD COUNT 5.9 x10^3/uL (4.8-10.8)
[2020-02-04 05:37] LABS: CALCIUM 8.3 mg/dL (8.5-10.3); CREATININE 0.9 mg/dL (0.6-1.2)
[2020-02-04] MEDS: PANTOPRAZOLE 40 MG TABLET PO SCH (06:33)
[2020-02-04 08:05] LABS: HIV AG/AB 4TH GEN NON-REACTIVE (NON-REACTIVE)
[2020-02-04] MEDS: SACCHAROMYCES BOULARDII 250 MG CAPSULE PO SCH ×2 (08:43→17:25)
[2020-02-04] MEDS: ENOXAPARIN 40 MG/0.4 ML SYRINGE SUBQ SCH (08:43)
[2020-02-04] MEDS: cefTRIAXone 2 GM in SODIUM CHLORIDE 0.9% MINIBAG 100 ML IV SCH (08:43)
[2020-02-04] MEDS: SODIUM CHLORIDE 0.9% 1,000 ML IV SCH ×2 (08:43→19:50)
[2020-02-04] MEDS: NICOTINE 14 MG PATCH TOP SCH (08:43)
--- NOTE | 2020-02-04 08:54 | PROVIDER PROGRESS NOTE ---
Assessment/Plan - Problem List (1) E coli bacteremia Assessment/Plan: The ANNIA and sensitivities are back from the blood culture done during the ER visit and the ceftriaxone IV is appropriate. Eusebio blood cultures were done, negative after 24 hours. He still have a fever spike overnight. He cannot be discharged until 24 hours free of a fever. Continue IV antibiotics therefore. (2) E. coli UTI Assessment/Plan: The urine grew similar E. coli. Plan will be for a toltal of 2 weeks of treatment, hopefully transitioning to p.o. antibiotics soon. If he continues to have fever spikes, if he grows positive blood cultures again, would get an echo to rule out endocarditis and then longer course of IV antibiotics will be needed. (3) Chlamydia infection Assessment/Plan: Yesterday evening the lab called with results of a positive chlamydia test. The patient was then treated with azithromycin 1 g orally x1, as per recommendations. The patient was informed of this diagnosis by the Materials Associate, Dr Hugo, and the patient was advised to inform his partner to be evaluated and treated as well. This is a reportable disease to the Health Department, the lab informed Yari Baltazar our ID liaison. (4) High risk heterosexual behavior Assessment/Plan: The patient did admit to having anal intercourse. That was probably the source of the E. coli UTI then bacteremia. The patient has been tested for STDs therefore. The chlamydia result was positive. We are still awaiting results for gonoc occus, trichomonas and syphilis. I told the patient about these still pending tests today. (5) Anemia Assessment/Plan: This is likely hemo-dilutional in a young healthy male. If hemoglobin drops below 10, will check iron stores, B12 and folate stores. (6) Sepsis Assessment/Plan: Resolved. White blood count is better. - Current Meds Current Meds: Current Medications Generic Name Dose Route Start Last Admin Trade Name Freq PRN Reason Stop Dose Admin Acetaminophen 650 mg 02/02/20 15:03 02/03/20 23:55 Tylenol PO 650 mg Q4HR PRN Administration Pain 1 to 4 Enoxaparin Sodium 40 mg 02/03/20 09:00 02/04/20 08:43 Lovenox SUBQ 40 mg DAILY [facility] Administration Sodium Chloride 1,000 mls @ 100 mls/hr 02/02/20 16:00 02/04/20 08:43 Normal Saline 0.9% IV 100 mls/hr .Q10H [facility] Administration Ceftriaxone Sodium 2 gm/ 100 mls @ 200 mls/hr 02/03/20 09:00 02/04/20 08:43 Sodium Chloride IV 200 mls/hr DAILY [facility] Administration Nicotine 1 patch 02/02/20 16:46 02/04/20 08:43 Nicoderm TOP 1 patch DAILY [facility] Administration Oxycodone HCl 5 mg 02/02/20 16:51 02/03/20 09:05 Roxicodone PO 5 mg Q4HR PRN Administration PAIN 1-5 Pantoprazole Sodium 40 mg 02/03/20 07:00 02/04/20 06:33 Protonix PO 40 mg QDAC [facility] Administration Saccharomyces Boulardii 250 mg 02/02/20 17:00 02/04/20 08:43 Florastor PO 250 mg BIDWM [facility] Administration Sodium Chloride 10 ml 02/02/20 17:00 02/03/20 23:53 Normal Saline Flush 0.9% IVP Not Given 0100,0900,1700 [facility] - Lab Result Fish Bone Diagrams: 02/04/20 04:55 02/04/20 04:55 Subjective - Subjective Patient Reports: Other (Still had a fever spike at midnight. No other complaints except he misses his caffeine.) Objective Vital Signs: Vital Signs - 24 hr 02/03/20 02/03/20 02/03/20 10:34 11:33 15:57 Temperature 37.1 C 37.2 C 36.8 C Heart Rate 59 L Heart Rate [ 66 65 Brachial] Respiratory 18 16 18 Rate Blood Pressure 115/59 L 107/53 L [Right Brachial artery] O2 Saturation 96 98 99 02/03/20 02/04/20 02/04/20 21:00 00:07 04:39 Temperature 36.8 C 38.1 C H 36.5 C Heart Rate Heart Rate [ 53 L 54 L 44 L Brachial] Respiratory 18 16 16 Rate Blood Pressure 112/65 124/75 103/59 L [Right Brachial artery] O2 Saturation 98 97 96 02/04/20 08:02 Temperature 36.9 C Heart Rate Heart Rate [ 45 L Brachial] Respiratory 16 Rate Blood Pressure 107/57 L [Right Brachial artery] O2 Saturation 97 Oxygen O2 Source Room air I&O (Last 24 Hrs): Intake and Output Totals x24h 02/02/20 02/03/20 02/04/20 23:59 23:59 23:59 Intake Total 2486 4068.333 883.333 Output Total 1350 1450 700 Balance 1136 2618.333 183.333 General: Alert, Oriented x3, No acute distress HEENT: Atraumatic, EOMI Neck: Supple, No JVD Neuro: Alert, Non Focal Cardiovascular: Regular rate Respiratory: No respiratory distress Abdomen: Normal bowel sounds, Soft, No tenderness Extremities: No edema - Results Results: Laboratory Results WBC 5.9 x10^3/uL (4.8-10.8) 02/04/20 04:55 RBC 4.00 10^6/uL (4.70-6.10) L 02/04/20 04:55 Hgb 12.4 g/dL (14.0-18.0) L 02/04/20 04:55 Hct 36.4 % (42.0-52.0) L 02/04/20 04:55 MCV 91.0 fL (80.0-94.0) 02/04/20 04:55 MCH 31.0 pg (27.0-31.0) 02/04/20 04:55 MCHC 34.1 g/dL (32.0-36.0) 02/04/20 04:55 RDW 13.0 % (12.0-15.0) 02/04/20 04:55 Plt Count 196 10^3/uL (130-450) 02/04/20 04:55 MPV 9.5 fL (7.4-11.4) 02/04/20 04:55 Neut # (Auto) 2.3 10^3/uL (1.5-6.6) 02/04/20 04:55 Lymph # (Auto) 2.0 10^3/uL (1.5-3.5) 02/04/20 04:55 [place] # (Auto) 1.2 10^3/uL (0.0-1.0) H 02/04/20 04:55 Eos # (Auto) 0.3 10^3/uL (0.0-0.7) 02/04/20 04:55 Baso # (Auto) 0.1 10^3/uL (0.0-0.1) 02/04/20 04:55 Absolute Nucleated RBC 0.00 x10^3/uL 02/04/20 04:55 Nucleated RBC % 0.0 /100WBC 02/04/20 04:55 Sodium 140 mmol/L (135-145) 02/04/20 04:55 Potassium 4.1 mmol/L (3.5-5.0) 02/04/20 04:55 Chloride 109 mmol/L (101-111) 02/04/20 04:55 Carbon Dioxide 26 mmol/L (21-32) 02/04/20 04:55 Anion Gap 5.0 (6-13) L 02/04/20 04:55 BUN 9 mg/dL (6-20) 02/04/20 04:55 Creatinine 0.9 mg/dL (0.6-1.2) 02/04/20 04:55 Estimated GFR (MDRD) 101 (>89) 02/04/20 04:55 Glucose 100 mg/dL (70-100) 02/04/20 04:55 Lactic Acid 0.7 mmol/L (0.5-2.2) 02/02/20 17:41 Calcium 8.3 mg/dL (8.5-10.3) L 02/04/20 04:55 Total Bilirubin 1.1 mg/dL (0.2-1.0) H 02/02/20 13:45 AST 19 IU/L (10-42) 02/02/20 13:45 ALT 12 IU/L (10-60) 02/02/20 13:45 Alkaline Phosphatase 38 IU/L (42-121) L 02/02/20 13:45 Total Protein 7.0 g/dL (6.7-8.2) 02/02/20 13:45 Albumin 3.6 g/dL (3.2-5.5) 02/02/20 13:45 Globulin 3.4 g/dL (2.1-4.2) 02/02/20 13:45 Albumin/Globulin Ratio 1.1 (1.0-2.2) 02/02/20 13:45 Urine Color YELLOW 02/02/20 19:30 Urine Clarity CLEAR (CLEAR) 02/02/20 19:30 Urine pH 8.0 PH (5.0-7.5) H 02/02/20 19:30 Ur Specific [place] 1.010 (1.002-1.030) 02/02/20 19:30 Urine Protein NEGATIVE mg/dL (NEGATIVE) 02/02/20 19:30 Urine Glucose (UA) NEGATIVE mg/dL (NEGATIVE) 02/02/20 19:30 Urine Ketones 15 mg/dL (NEGATIVE) H 02/02/20 19:30 Urine Occult Blood NEGATIVE (NEGATIVE) 02/02/20 19:30 Urine Nitrite NEGATIVE (NEGATIVE) 02/02/20 19:30 Urine Bilirubin NEGATIVE (NEGATIVE) 02/02/20 19:30 Urine Urobilinogen 0.2 (NORMAL) E.U./dL (NORMAL) 02/02/20 19:30 Ur Leukocyte Esterase NEGATIVE (NEGATIVE) 02/02/20 19:30 Urine RBC 0-5 /HPF (0-5) 02/02/20 19:30 Urine WBC 6-10 /HPF (0-3) H 02/02/20 19:30 Ur Squamous Epith Cells NONE SEEN (<= Few) 02/02/20 19:30 Urine Bacteria None Seen /HPF (None Seen) 02/02/20 19:30 Urine Culture Comments INDICATED 02/02/20 19:30 Chlam trachomat DNA PCR POSITIVE (NEGATIVE) A 02/02/20 19:30 HIV 1&2 Ag/Ab, 4th Gen NON-REACTIVE (NON-REACTIVE) 02/03/20 07:35 N.gonorrhoeae DNA (PCR) NEGATIVE (NEGATIVE) 02/02/20 19:30 T. vaginalis (PCR) TNP 02/02/20 19:30 Sepsis Event Note (H) - Evaluation Current Stage of Sepsis: Sepsis Possible source of Sepsis: positive: Genitourinary - Sepsis Criteria Sepsis Criteria: Recorded Temperature greater than 38.3C or Less than 36C, Recorded Heart Rate greater than 90 bpm, WBC count greater than 10% bands, WBC count greater than 12,000 or less than 4000
[2020-02-04] MEDS: SODIUM CHLORIDE FLUSH 0.9% 10 ML SYRINGE IVP SCH ×2 (09:24→17:25)
[2020-02-05 05:07] LABS: BASOPHILS # (AUTO) 0.1 10^3/uL (0.0-0.1); EOSINOPHILS # (AUTO) 0.4 10^3/uL (0.0-0.7); EOSINOPHILS % (AUTO) 6.2 %; HGB - HEMOGLOBIN 12.5 g/dL (14.0-18.0); LYMPHOCYTES # (AUTO) 2.7 10^3/uL (1.5-3.5); LYMPHOCYTES % (AUTO) 37.1 %; MEAN CORPUSCULAR HEMOGLOBIN 29.8 pg (27.0-31.0); MEAN CORPUSCULAR HGB CONC 33.9 g/dL (32.0-36.0); MEAN CORPUSCULAR VOLUME 88.1 fL (80.0-94.0); MEAN PLATELET VOLUME 9.3 fL (7.4-11.4); MONOCYTES % (AUTO) 14.3 %; NEUTROPHILS # (AUTO) 2.9 10^3/uL (1.5-6.6); PLT - PLATELET COUNT 249 10^3/uL (130-450); RED BLOOD COUNT 4.19 10^6/uL (4.70-6.10); RED CELL DISTRIBUTION WIDTH 12.6 % (12.0-15.0); WHITE BLOOD COUNT 7.1 x10^3/uL (4.8-10.8)
[2020-02-05 05:18] LABS: CALCIUM 8.3 mg/dL (8.5-10.3); CREATININE 0.8 mg/dL (0.6-1.2)
[2020-02-05] MEDS: SODIUM CHLORIDE FLUSH 0.9% 10 ML SYRINGE IVP SCH ×2 (05:20→09:48)
[2020-02-05] MEDS: SODIUM CHLORIDE 0.9% 1,000 ML IV SCH (05:56)
[2020-02-05] MEDS: PANTOPRAZOLE 40 MG TABLET PO SCH (05:59)
[2020-02-05] MEDS ORDERED: POTASSIUM CHLORIDE 20 MEQ TABLET PO SCH (07:04)
[2020-02-05 08:04] VITALS: BP 124/72
[2020-02-05] MEDS: SACCHAROMYCES BOULARDII 250 MG CAPSULE PO SCH (08:04)
[2020-02-05] MEDS: ACETAMINOPHEN 325 MG TABLET PO PRN (08:04)
[2020-02-05] MEDS: NICOTINE 14 MG PATCH TOP SCH (08:04)
[2020-02-05] MEDS: ENOXAPARIN 40 MG/0.4 ML SYRINGE SUBQ SCH (08:05)
[2020-02-05] MEDS: cefTRIAXone 2 GM in SODIUM CHLORIDE 0.9% MINIBAG 100 ML IV SCH (08:05)
--- NOTE | 2020-02-05 08:18 | PROVIDER PROGRESS NOTE ---
Assessment/Plan - Current Meds Current Meds: Current Medications Generic Name Dose Route Start Last Admin Trade Name Freq PRN Reason Stop Dose Admin Acetaminophen 650 mg 02/02/20 15:03 02/05/20 08:04 Tylenol PO 650 mg Q4HR PRN Administration Pain 1 to 4 Enoxaparin Sodium 40 mg 02/03/20 09:00 02/05/20 08:05 Lovenox SUBQ Not Given DAILY [facility] Sodium Chloride 1,000 mls @ 100 mls/hr 02/02/20 16:00 02/05/20 05:56 Normal Saline 0.9% IV 100 mls/hr .Q10H [facility] Administration Ceftriaxone Sodium 2 gm/ 100 mls @ 200 mls/hr 02/03/20 09:00 02/05/20 08:05 Sodium Chloride IV 200 mls/hr DAILY [facility] Administration Nicotine 1 patch 02/02/20 16:46 02/05/20 08:04 Nicoderm TOP 1 patch DAILY [facility] Administration Oxycodone HCl 5 mg 02/02/20 16:51 02/03/20 09:05 Roxicodone PO 5 mg Q4HR PRN Administration PAIN 1-5 Pantoprazole Sodium 40 mg 02/03/20 07:00 02/05/20 05:59 Protonix PO 40 mg QDAC [facility] Administration Saccharomyces Boulardii 250 mg 02/02/20 17:00 02/05/20 08:04 Florastor PO 250 mg BIDWM [facility] Administration Sodium Chloride 10 ml 02/02/20 17:00 02/05/20 05:20 Normal Saline Flush 0.9% IVP Not Given 0100,0900,1700 [facility] - Lab Result Fish Bone Diagrams: 02/05/20 04:35 02/05/20 04:35 - Additional Planning My Orders: My Active Orders 02/04/20 10:10 Initiate Bowel Care Protocol [RC] QSHIFT Objective Vital Signs: Vital Signs - 24 hr 02/04/20 02/04/20 02/05/20 12:57 15:44 00:08 Temperature 37.1 C 36.4 C L 36.7 C Heart Rate [ 50 L 48 L 50 L Brachial] Respiratory 18 18 16 Rate Blood Pressure 120/69 115/65 122/78 [Right Brachial artery] O2 Saturation 100 99 97 02/05/20 08:00 Temperature 36.5 C Heart Rate [ 48 L Brachial] Respiratory 14 Rate Blood Pressure 124/72 [Right Brachial artery] O2 Saturation 99 Oxygen O2 Source Room air I&O (Last 24 Hrs): Intake and Output Totals x24h 02/03/20 02/04/20 02/05/20 23:59 23:59 23:59 Intake Total 4068.333 3413.333 1500 Output Total 1450 700 Balance 2618.333 2713.333 1500 - Results Results: Laboratory Results WBC 7.1 x10^3/uL (4.8-10.8) 02/05/20 04:35 RBC 4.19 10^6/uL (4.70-6.10) L 02/05/20 04:35 Hgb 12.5 g/dL (14.0-18.0) L 02/05/20 04:35 Hct 36.9 % (42.0-52.0) L 02/05/20 04:35 MCV 88.1 fL (80.0-94.0) 02/05/20 04:35 MCH 29.8 pg (27.0-31.0) 02/05/20 04:35 MCHC 33.9 g/dL (32.0-36.0) 02/05/20 04:35 RDW 12.6 % (12.0-15.0) 02/05/20 04:35 Plt Count 249 10^3/uL (130-450) 02/05/20 04:35 MPV 9.3 fL (7.4-11.4) 02/05/20 04:35 Neut # (Auto) 2.9 10^3/uL (1.5-6.6) 02/05/20 04:35 Lymph # (Auto) 2.7 10^3/uL (1.5-3.5) 02/05/20 04:35 [place] # (Auto) 1.0 10^3/uL (0.0-1.0) 02/05/20 04:35 Eos # (Auto) 0.4 10^3/uL (0.0-0.7) 02/05/20 04:35 Baso # (Auto) 0.1 10^3/uL (0.0-0.1) 02/05/20 04:35 Absolute Nucleated RBC 0.00 x10^3/uL 02/05/20 04:35 Nucleated RBC % 0.0 /100WBC 02/05/20 04:35 Sodium 139 mmol/L (135-145) 02/05/20 04:35 Potassium 3.4 mmol/L (3.5-5.0) L 02/05/20 04:35 Chloride 108 mmol/L (101-111) 02/05/20 04:35 Carbon Dioxide 25 mmol/L (21-32) 02/05/20 04:35 Anion Gap 6.0 (6-13) 02/05/20 04:35 BUN 10 mg/dL (6-20) 02/05/20 04:35 Creatinine 0.8 mg/dL (0.6-1.2) 02/05/20 04:35 Estimated GFR (MDRD) 116 (>89) 02/05/20 04:35 Glucose 108 mg/dL (70-100) H 02/05/20 04:35 Lactic Acid 0.7 mmol/L (0.5-2.2) 02/02/20 17:41 Calcium 8.3 mg/dL (8.5-10.3) L 02/05/20 04:35 Total Bilirubin 1.1 mg/dL (0.2-1.0) H 02/02/20 13:45 AST 19 IU/L (10-42) 02/02/20 13:45 ALT 12 IU/L (10-60) 02/02/20 13:45 Alkaline Phosphatase 38 IU/L (42-121) L 02/02/20 13:45 Total Protein 7.0 g/dL (6.7-8.2) 02/02/20 13:45 Albumin 3.6 g/dL (3.2-5.5) 02/02/20 13:45 Globulin 3.4 g/dL (2.1-4.2) 02/02/20 13:45 Albumin/Globulin Ratio 1.1 (1.0-2.2) 02/02/20 13:45 Urine Color YELLOW 02/02/20 19:30 Urine Clarity CLEAR (CLEAR) 02/02/20 19:30 Urine pH 8.0 PH (5.0-7.5) H 02/02/20 19:30 Ur Specific [place] 1.010 (1.002-1.030) 02/02/20 19:30 Urine Protein NEGATIVE mg/dL (NEGATIVE) 02/02/20 19:30 Urine Glucose (UA) NEGATIVE mg/dL (NEGATIVE) 02/02/20 19:30 Urine Ketones 15 mg/dL (NEGATIVE) H 02/02/20 19:30 Urine Occult Blood NEGATIVE (NEGATIVE) 02/02/20 19:30 Urine Nitrite NEGATIVE (NEGATIVE) 02/02/20 19:30 Urine Bilirubin NEGATIVE (NEGATIVE) 02/02/20 19:30 Urine Urobilinogen 0.2 (NORMAL) E.U./dL (NORMAL) 02/02/20 19:30 Ur Leukocyte Esterase NEGATIVE (NEGATIVE) 02/02/20 19:30 Urine RBC 0-5 /HPF (0-5) 02/02/20 19:30 Urine WBC 6-10 /HPF (0-3) H 02/02/20 19:30 Ur Squamous Epith Cells NONE SEEN (<= Few) 02/02/20 19:30 Urine Bacteria None Seen /HPF (None Seen) 02/02/20 19:30 Urine Culture Comments INDICATED 02/02/20 19:30 Chlam trachomat DNA PCR POSITIVE (NEGATIVE) A 02/02/20 19:30 HIV 1&2 Ag/Ab, 4th Gen NON-REACTIVE (NON-REACTIVE) 02/03/20 07:35 N.gonorrhoeae DNA (PCR) NEGATIVE (NEGATIVE) 02/02/20 19:30 T. vaginalis (PCR) TNP 02/02/20 19:30 Sepsis Event Note (H) - Evaluation Current Stage of Sepsis: Sepsis Possible source of Sepsis: positive: Genitourinary - Sepsis Criteria Sepsis Criteria: Recorded Temperature greater than 38.3C or Less than 36C, Recorded Heart Rate greater than 90 bpm, WBC count greater than 10% bands, WBC count greater than 12,000 or less than 4000
--- NOTE | 2020-02-05 09:56 | Discharge Plan ---
Discharge Plan Problem Reviewed?: Yes Disposition: Home, Self Care Condition: Stable Prescriptions: Levofloxacin [Levaquin] 750 mg PO DAILY #12 tablet Saccharomyces Boulardii 250 mg PO DAILY #12 capsule Diet: Regular Activity Restrictions: Activity as Tolerated Shower Restrictions: No Driving Restrictions: No Instruction Topics: ED UTI Pyelonephritis Male Health Concerns: You were admitted for IV antibiotics because you had bacteria in your bloodstream. The bacteria originated from a urinary tract infection. We also found that you had Chlamydia STD, and you were treated for that. You need to complete a course of oral antibiotics to treat the E. coli bacteria. A new prescription of Levofloxacin and a probiotic were electronically sent to your [facility] pharmacy in [place]. You need to see a Primary Care provider in 1 to 2 weeks for hospital follow-up, to assure that treatment is complete. You also need to get the final results of the STD tests, in case you need more treatment. Dr. Castro is listed below; [place] [facility] [place]. If you have new or worsening symptoms, call your PCP or come to the ER. Plan of Treatment: As above. Care Goals: Improvement in symptoms and stabilization are the goals. Assessment: Patient understands and is agreeable with the plan. No Smoking: If you smoke, Please STOP! Call for help. Follow-up with: CHARLENE CASTRO MD [Physician No Access] -
--- NOTE | 2020-02-05 10:18 | DISCHARGE SUMMARY ---
Discharge Summary Admit Date: 02/02/20 Discharge Date: 02/05/20 Discharging Provider: Dr Stacy Porras Primary Care Provider: [facility] Code Status: Attempt Resuscitation Condition at Discharge: Stable Discharge Disposition: 01 Home, Self Care - [facility] History of Present Illness: On the admission H&P of Oscar Mccartney NP: This is an otherwise healthy 29-year-old male who presented to ER complaining of fever, and told of positive bacteremia. Patient came to the ER the previous day. He was diagnosed to have UTI, was prescribed antibiotics and discharged to go home. Blood cultures had been drawn and reported out with positive bacteremia, growing Gram negative bacilli in 2/2 blood cultures. He was phone called and advised to come back to the hospital for continuing medical management. He reported several days of worsening fevers, chills, myalgias. He reported he has been noticing some hematuria, and had bilateral lower back pain. He denies any recent travel outside the country. Patient had covid 19 test done yesterday, the test result is still to come back. On routine lab tests, he has elevated WBC, lactic acid is normal, in the ER patient had temperature 37.6, slightly tachycardia at heart rate 110. Patient denies chest pain, shortness of breathing, abdominal pain, nausea or vomiting or diarrhea. Patient is admitted to Inpatient status for further medical management. - HOSPITAL COURSE Hospital Course: (1) Sepsis Resolved with initiation of iv fluids and iv antibiotics. White blood count, tachycardia and eventually the fevers improved. (2) E coli bacteremia The bacteremia was identified as E coli, therefore the empiric ceftriaxone IV was appropriate. He kept spiking a fever at midnight, therefore repeat blood cultures were done, but were all negative to date. He was discharged after being afebrile for >24 hours, and sent home with a prescription for oral Levoflaxacin, to complete a total 2 week course of antibiotics. Probiotics were also prescribed for home. (3) E. coli UTI The urine grew similar E. coli. A CT of the abdomen had been done that showed no congenital abnormality of the system or obstruction or stones. He was therefore questioned about penile intercourse and admitted to having occasional anal sex with his heterosexual partner. (4) Chlamydia infection Due to the above, he was tested for STDs. The lab called with results of a positive chlamydia test. The patient was then treated with Azithromycin 1 g orally x1, as per recommendations. The patient was informed of this diagnosis, was advised to inform his partner to be evaluated and treated as well. This is a reportable disease to the Health Department, therefore, the lab informed Amara Baltazar RN, our ID liaison. The HIV and GC tests were neg. Trichomonas is not tested in a male. The syphyllis test was still pending. (5) High risk heterosexual behavior The patient did admit to having anal intercourse. That was probably the source of the E. coli UTI, leading to bacteremia. He was tested for STDs as above. (6) Anemia The admission Hgb was 13.6 and lowest was 12.5. This is likely hemo-dilutional, as he was 8L (+) in fluid balance during this entire stay. (7) Bradycardia. Telemetry showed heart rates as low as 36-40. He is asymptomatic. The patient is young and a weight rn building and bradycardia nocturnally is not unexpected. (8) Constipation There was no BM for 3 days, possibly due to dehydration and being without caffeine products. The bowel protocol was ordered. - ALLERGIES Allergies/Adverse Reactions: Allergies Allergy/AdvReac Type Severity Reaction Status Date / Time No Known Drug Allergies Allergy Verified 02/02/20 13:32 - MEDICATIONS Home Medications: Ambulatory Orders Medication Instructions Recorded Confirmed Levofloxacin [Levaquin] 750 mg PO DAILY #12 tablet 02/05/20 Saccharomyces Boulardii 250 mg PO DAILY #12 capsule 02/05/20 - PHYSICAL EXAM AT DISCHARGE General Appearance: positive: No acute distress, Alert Eyes Bilateral: positive: Normal inspection, EOMI ENT: positive: ENT inspection nml, No signs of dehydration Neck: positive: Nml inspection, No JVD Respiratory: positive: No respiratory distress Cardiovascular: positive: Regular rate & rhythm Abdomen: positive: Non-tender, No distention Back: positive: Nml inspection Skin: positive: Color nml Extremities: positive: Non-tender, No pedal edema Neurologic/Psychiatric: positive: Oriented x3, Other (Non-focal) - LABS Result Diagrams: 02/05/20 04:35 02/05/20 04:35 - DIAGNOSTIC IMAGING Diagnostic Imaging Results: Final report reviewed - SEPSIS Current Stage of Sepsis: Sepsis Possible source of Sepsis: Genitourinary Sepsis Criteria: Recorded Temperature greater than 38.3C or Less than 36C, Recorded Heart Rate greater than 90 bpm, WBC count greater than 10% bands, WBC count greater than 12,000 or less than 4000 - FOLLOW UP Follow Up: He was told to get a PCP at the [facility] for a hospital follow-up visit appointment. - TIME SPENT Time Spent in Discharge (Minutes): 45
== END 2020-02-05 11:01 | disposition home or self-care (01) | DRG 872 ==
LOC: ED 13:18 → MS2 15:03
PROVIDERS: ADMIT Nurse Practitioner Gerontology; ATTEND Internal Medicine
DX: A41.51 Sepsis due to Escherichia coli [E. coli] (principal); N39.0 Urinary tract infection, site not specified; A56.2 Chlamydial infection of genitourinary tract, unspecified; D64.9 Anemia, unspecified; R00.1 Bradycardia, unspecified; K59.00 Constipation, unspecified; F17.210 Nicotine dependence, cigarettes, uncomplicated; Z20.828 Contact with and (suspected) exposure to other viral communicable diseases; Z72.51 High risk heterosexual behavior; R31.9 Hematuria, unspecified; I51.7 Cardiomegaly; Z11.59 Encounter for screening for other viral diseases
CPT/HCPCS: 36415; 71045; 74176; 80048; 80053; 81001; 81599; 82550; 83605; 83690; 84484; 85025; 85610; 85730; 86780; 87040; 87077; 87086; 87181; 87275; 87276; 87389; 87491; 87591; 93005; 96365; 96375; 99283; 99284; 99285; A9270; J0131; J1170; J1650; 81003; 87661